=== PATIENT | female | born 1950 | race Caucasian/White ===

== ENCOUNTER 2017-03-02 10:09 | Inpatient (IN) | payer MEDICARE, OTHER ==
[~2017-03-02] VITALS: Ht 167.6 cm; Wt 111.7 kg
[~2017-03-02 10:09] MED LIST: MECL25 PO; PROM1SUP12 PR; Z.0.NO CURRENT MEDS
[2017-03-02 10:30] VITALS: BP 132/96; PULSE 68; RESP 16; TEMP 98; O2SAT 100
[2017-03-02 10:32] VITALS: BP 131/78; PULSE 67; RESP 18; TEMP 98.1; O2SAT 97
[2017-03-02] MEDS ORDERED: MULT-65 PO (11:13)
[2017-03-02] MEDS ORDERED: eye drops (11:13)
--- NOTE | 2017-03-02 12:02 | PD ---
HPI Chief Complaint: Fall Time Seen by Provider: 11:51 Travel History International Travel<30 days: No Contact w/Intl Traveler<30days: No Traveled to known affect area: No History of Present Illness HPI 66-year-old female complains of right knee pain, bilateral feet pain. Patient fell off a stepladder this morning. Patient states that she hit her head and the left shoulder and landed on the left side of her body. Patient denies loss of consciousness. Patient denies any headache or neck pain. Patient denies any chest pain or shortness of breath. Patient denies abdominal pain. Patient denies any back pain. Patient states that she has sharp pain localized the right knee and bilateral feet. Patient denies any focal weakness or numbness of extremity. Patient denies any medical problem except glaucoma. Patient states that she is on eyedrops medication daily. PFSH Past Medical History Diminished Hearing: No Medical other: Yes (eyedrops for pre glaucoma) Influenza Vaccination: Yes Menopausal: Yes Social History Alcohol Use: Yes (occassional ) Tobacco Use: No Substance Use: No Allergies-Medications (Allergen,Severity, Reaction): Coded Allergies: No Known Allergies (Verified Allergy, Mild, 06/24/07) Reported Meds & Prescriptions Reported Meds & Active Scripts Active Reported Multi-Vitamin Daily (Multiple Vitamin) 1 Tab Tab 1 Tab PO DAILY [eye drops] BID Review of Systems General / Constitutional: No: Fever Eyes: No: Visual changes HENT: No: Headaches Cardiovascular: No: Chest Pain or Discomfort Respiratory: No: Shortness of Breath Gastrointestinal: No: Abdominal Pain Genitourinary: No: Dysuria Musculoskeletal: Positive: Pain Skin: No Rash Neurologic: No: Weakness Psychiatric: No: Depression Endocrine: No: Polydipsia Hematologic/Lymphatic: No: Easy Bruising Physical Exam Narrative GENERAL: Well-nourished, well-developed patient. SKIN: Focused skin assessment warm/dry. HEAD: Normocephalic. No tenderness on palpation of the head. EYES: No scleral icterus. No injection or drainage. Pupils 2 mm equal reactive. NECK: Supple, trachea midline. No JVD or lymphadenopathy. No tenderness on palpation of the neck. CARDIOVASCULAR: Regular rate and rhythm without murmurs, gallops, or rubs. RESPIRATORY: Breath sounds equal bilaterally. No accessory muscle use. GASTROINTESTINAL: Abdomen soft, non-tender, nondistended. MUSCULOSKELETAL: Patient has diffuse tenderness over the right knee. Limited range of motion the right knee. Right Knee joint stable. Moderate effusion noted right knee. Patient has mild soft tissue swelling tenderness dorsal aspect of both feet. Tenderness diffuse over the dorsum aspect of both feet. Moderate tenderness on palpation over the fourth and fifth metatarsal of the left foot. No ankle tenderness on palpation. BACK: Nontender without obvious deformity. No CVA tenderness. Neurologic exam normal. Data Data Last Documented VS Vital Signs Date Time Temp Pulse Resp B/P (MAP) Pulse Ox O2 Delivery O2 Flow Rate FiO2 03/02/17 10:32 98.1 67 18 131/78 (95) 97 Room Air Orders Orders Ankle, Complete ([id number]) (03/02/17 10:38) Knee, Complete (4vws) (03/02/17 10:38) Foot, Complete ([id number]) (03/02/17 11:56) Foot, Complete ([id number]) (03/02/17 11:56) Ct Knee W/O Contrast (03/02/17 ) Electrocardiogram (03/02/17 13:22) Complete Blood Count With Diff (03/02/17 13:22) Basic Metabolic Panel (Bmp) (03/02/17 13:22) Prothrombin Time / Inr (Pt) (03/02/17 13:22) Act Partial Throm Time (Ptt) (03/02/17 13:22) Chest, Single Ap (03/02/17 13:22) Iv Access Insert/Monitor (03/02/17 13:22) Ecg Monitoring (03/02/17 13:22) Oximetry (03/02/17 13:22) Splint Or Brace Apply/Monitor (03/02/17 15:01) Splint Or Brace Apply/Monitor (03/02/17 15:01) Labs Laboratory Tests Test 03/02/17 13:35 White Blood Count 11.0 TH/MM3 Red Blood Count 4.47 MIL/MM3 Hemoglobin 14.4 GM/DL Hematocrit 43.4 % Mean Corpuscular Volume 97.2 FL Mean Corpuscular Hemoglobin 32.2 PG Mean Corpuscular Hemoglobin Concent 33.1 % Red Cell Distribution Width 13.8 % Platelet Count 208 TH/MM3 Mean Platelet Volume 9.3 FL Neutrophils (%) (Auto) 75.4 % Lymphocytes (%) (Auto) 14.4 % Monocytes (%) (Auto) 7.3 % Eosinophils (%) (Auto) 2.3 % Basophils (%) (Auto) 0.6 % Neutrophils # (Auto) 8.3 TH/MM3 Lymphocytes # (Auto) 1.6 TH/MM3 Monocytes # (Auto) 0.8 TH/MM3 Eosinophils # (Auto) 0.2 TH/MM3 Basophils # (Auto) 0.1 TH/MM3 CBC Comment DIFF FINAL Differential Comment Prothrombin Time 10.4 SEC Prothromb Time International Ratio 0.9 RATIO Activated Partial Thromboplast Time 21.9 SEC Blood Urea Nitrogen 18 MG/DL Creatinine 0.96 MG/DL Random Glucose 93 MG/DL Calcium Level 8.5 MG/DL Sodium Level 141 MEQ/L Potassium Level 3.7 MEQ/L Chloride Level 109 MEQ/L Carbon Dioxide Level 25.3 MEQ/L Anion Gap 7 MEQ/L Estimat Glomerular Filtration Rate 58 ML/MIN MDM Medical Decision Making Medical Screen Exam Complete: Yes Emergency Medical Condition: Yes Interpretation(s) 3:04 PM. X-ray shows right tibial fracture and left fifth metatarsal fracture. Differential Diagnosis Differential diagnosis including sprain, fracture, dislocation. Narrative Course 66-year-old female with right knee pain, bilateral feet pain. Status post fall. Knee immobilizer right knee. Posterior short splint left leg. I spoke with Dr. Luis Flowers, orthopedist web production manager. Advised medical admission with orthopedist consultation. Surgery pending in a.m. Diagnosis Primary Impression: Fracture of right tibial plateau Qualified Codes: S82.141A - Displaced bicondylar fracture of right tibia, initial encounter for closed fracture Additional Impression: Fracture of fifth metatarsal bone of left foot Qualified Codes: S92.352A - Displaced fracture of fifth metatarsal bone, left foot, initial encounter for closed fracture Admitting Information Admitting Physician Requests: Admit Donn Reynolds MD Mar 02, 2017 12:02
--- NOTE | 2017-03-02 13:21 | RADRPT ---
EXAM DATE/TIME: 03/02/2017 12:18 [facility] COMPARISON: No previous studies available for comparison. INDICATIONS : Patient states she fell today, right knee pain. MEDICAL HISTORY : None. SURGICAL HISTORY : None. ENCOUNTER: Initial ACUITY: 1 day PAIN SCORE: 6/10 LOCATION: Right Knee FINDINGS: There is evidence of an acute depressed fracture involving the lateral tibial plateau. Fracture also involves the lateral aspect of the medial tibial plateau. A large suprapatellar knee joint effusion is noted. Mild degenerative changes are noted involving the patellofemoral and femorotibial joints. CONCLUSION: 1. Acute depressed fracture involving the lateral tibial plateau as well as a fracture involving the lateral aspect of the medial tibial plateau. 2. Large suprapatellar knee joint effusion. 3. Mild degenerative changes involving the patellofemoral and femorotibial joints. Andreas Bah MD on March 02, 2017 at 12:47 Board Certified Radiologist. This report was verified electronically.
--- NOTE | 2017-03-02 13:23 | RADRPT ---
EXAM DATE/TIME: 03/02/2017 12:20 [facility] COMPARISON: No previous studies available for comparison. INDICATIONS : Patient states she fell today, right ankle pain. MEDICAL HISTORY : None. SURGICAL HISTORY : None. ENCOUNTER: Initial ACUITY: 1 day PAIN SCORE: 4/10 LOCATION: Right Ankle FINDINGS: Plantar calcaneal spur is noted. There is no acute fracture or dislocation of the right ankle. The ankle Mortis is intact. CONCLUSION: 1. No acute fracture or dislocation. 2. Small plantar calcaneal spur. Andreas Bah MD on March 02, 2017 at 12:50 Board Certified Radiologist. This report was verified electronically.
[2017-03-02 13:49] LABS: AUTOMATED NEUTROPHIL # 8.3 TH/MM3 (1.8-7.7); BASOPHIL # 0.1 TH/MM3 (0-0.2); BASOPHIL % 0.6 % (0.0-2.0); EOSINOPHIL # 0.2 TH/MM3 (0-0.4); EOSINOPHIL % 2.3 % (0.0-4.0); HEMATOCRIT 43.4 % (35.0-46.0); HEMO FLAGS DIFF FINAL; LYMPH % 14.4 % (9.0-44.0); LYMPHOCYTE # 1.6 TH/MM3 (1.0-4.8); MEAN CELL VOLUME 97.2 FL (80.0-100.0); MEAN CORPUSCULAR HEMOGLOBIN 32.2 PG (27.0-34.0); MEAN CORPUSCULAR HGB CONC 33.1 % (32.0-36.0); MONO % 7.3 % (0.0-8.0); NEUT % 75.4 % (16.0-70.0); PLATELET COUNT 208 TH/MM3 (150-450); RED BLOOD COUNT 4.47 MIL/MM3 (4.00-5.30); RED CELL DISTRIBUTION WIDTH 13.8 % (11.6-17.2)
--- NOTE | 2017-03-02 13:51 | RADRPT ---
EXAM DATE/TIME: 03/02/2017 12:21 [facility] COMPARISON: ANKLE RIGHT COMPLETE ([id number]), March 02, 2017, 12:20. INDICATIONS : Patient states she fell today, right foot pain. MEDICAL HISTORY : None. SURGICAL HISTORY : None. ENCOUNTER: Initial ACUITY: 1 day PAIN SCORE: 6/10 LOCATION: Right Foot FINDINGS: The exam demonstrates advanced degenerative changes in the metatarsal phalangeal joint of the first a nd second digits. No acute fracture of the right foot is identified. The osseous structures are other ellis intact. There is soft tissue swelling along the dorsal aspect of the foot. CONCLUSION: 1. Degenerative changes. No acute fracture. Sinan Castillo MD on March 02, 2017 at 13:48 Board Certified Radiologist. This report was verified electronically.
--- NOTE | 2017-03-02 13:52 | RADRPT ---
EXAM DATE/TIME: 03/02/2017 12:26 [facility] COMPARISON: FOOT RIGHT COMPLETE ([id number]), March 02, 2017, 12:21. INDICATIONS : Patient states she fell today, left foot pain. MEDICAL HISTORY : None. SURGICAL HISTORY : None. ENCOUNTER: Initial ACUITY: 1 day PAIN SCORE: 6/10 LOCATION: Left Foot FINDINGS: The examination demonstrates a mildly displaced, oblique fracture through the fifth metatarsal. The r emainder the osseous structures are intact. There is soft tissue swelling. CONCLUSION: 1. Fracture of the fifth metatarsal. Sinan Castillo MD on March 02, 2017 at 13:49 Board Certified Radiologist. This report was verified electronically.
[2017-03-02 14:00] VITALS: BP 123/70; PULSE 72; RESP 16; O2SAT 96
[2017-03-02 14:00] LABS: APTT (PATIENT) 21.9 SEC (24.3-30.1); INTERNATIONAL NORMALIZED RATIO 0.9 RATIO; PROTHROMBIN TIME - PATIENT 10.4 SEC (9.8-11.6)
[2017-03-02 14:12] LABS: BICARBONATE 25.3 MEQ/L (21.0-32.0); POTASSIUM 3.7 MEQ/L (3.5-5.1)
--- NOTE | 2017-03-02 14:15 | RADRPT ---
EXAM DATE/TIME: 03/02/2017 13:49 [facility] COMPARISON: No previous studies available for comparison. INDICATIONS : Trauma; fall off ladder. RADIATION DOSE: 47.10 CTDIvol (mGy) MEDICAL HISTORY : None SURGICAL HISTORY : None. ENCOUNTER: Initial ACUITY: 1 day PAIN SCALE: 6/10 LOCATION: Right knee TECHNIQUE: Volumetric scanning of the knee was performed. Using automated exposure control and adjustment of th e mA and/or kV according to patient size, radiation dose was kept as low as reasonably achievable to obtain optimal diagnostic quality images. DICOM format image data is available electronically for re view and comparison. FINDINGS: There is an impacted fracture of the lateral tibial plateau that begins medial to the tibial spine. There is depression of the entire lateral plateau by approximately 8 mm. Fibular head is intact The femoral condyles intact. Joint effusion is evident within fluid fluid level. CONCLUSION: Lateral plateau fracture as described above that doesn't involve the tibial spines. Fibula is intact. Tesfaye Castillo MD FACR on March 02, 2017 at 14:10 Board Certified Radiologist. This report was verified electronically.
--- NOTE | 2017-03-02 14:36 | RADRPT ---
EXAM DATE/TIME: 03/02/2017 13:31 [facility] COMPARISON: No previous studies available for comparison. INDICATIONS : Evaluate for communicable disease, pneumonia, preop surgery. MEDICAL HISTORY : None. SURGICAL HISTORY : None. ENCOUNTER: Subsequent ACUITY: 1 day PAIN SCORE: 0/10 LOCATION: Bilateral chest FINDINGS: The heart is mildly prominent. The pulmonary vascular pattern is normal. The lungs are clear. CONCLUSION: 1. Mild cardiomegaly. 2. No acute focal pulmonary infiltrate or pulmonary vascular congestion. Andreas Bah MD on March 02, 2017 at 14:08 Board Certified Radiologist. This report was verified electronically.
[2017-03-02] MEDS ORDERED: SODIUM CHLOR 0.9% 1000 ML INJ 1,000 ML IV SCH (15:15)
[2017-03-02] MEDS ORDERED: ONDANSETRON HCL 4 MG/2 ML VIAL IVP PRN (15:45)
[2017-03-02] MEDS ORDERED: ACETAMINOPHEN/HYDROcodone 325 MG/10 MG TAB PO PRN (15:45)
[2017-03-02] MEDS ORDERED: NALOXONE HCL 0.4 MG/ML AMP IV PUSH PRN (15:45)
[2017-03-02] MEDS ORDERED: ACETAMINOPHEN/HYDROcodone 325 MG/5 MG TAB PO PRN (15:45)
[2017-03-02] MEDS ORDERED: SODIUM CHLORIDE 0.9% FLUSH 10 ML FLUSH IV FLUSH PRN (15:45)
--- NOTE | 2017-03-02 16:20 | HHI.HP ---
[facility] No Primary Care Physician Admission Diagnosis fracture right tibial plateau. Fracture left foot fifth metatarsal. Diagnoses: Chief Complaint: Fall Travel History International Travel<30 Days: No Contact w/Intl Traveler <30 Da: No Traveled to Known Affected Are: No History of Present Illness Written by Amro Pacheco, acting as scribe for Dr. Bledsoe on 03/02/17 at 16:15. 66-year-old female with past medical history of glaucoma who presented after a fall. The patient was pain on the and standing on a two-step call stepstool. She lost her balance and fell onto the left side of her body. She states she hit her head, left shoulder, but those are okay. She did fracture her left foot and right knee. She denies any other injury. She has no other complaints at this time. Orthopedics were consulted from the ED and plan on operative intervention in the morning. Review of Systems Except as stated in HPI: all other systems reviewed are Neg Past Family Social History Past Medical History Glaucoma Past Surgical History Breast biopsies Reported Medications Eyedrops Allergies: Coded Allergies: No Known Allergies (Verified , 06/24/07) Active Ordered Medications Current Medications Medications (Trade) Dose Ordered Sig/Jame Route Start Time Stop Time Status Last Admin Sodium Chloride 1,000 ml @ 100 mls/hr Q10H IV 03/02/17 15:15 03/02/17 15:25 Sodium Chloride 1,000 ml @ 83 mls/hr Q12H3M IV 03/02/17 15:31 UNV (NS Flush) 2 ml UNSCH PRN IV FLUSH 03/02/17 15:45 UNV (NS Flush) 2 ml BID IV FLUSH 03/02/17 21:00 UNV (Zofran Inj) 4 mg Q6H PRN IVP 03/02/17 15:45 UNV (Lovenox Inj) 40 mg Q24H SQ 03/02/17 15:45 UNV ([place] 5-325 Mg) 1 tab Q4H PRN PO 03/02/17 15:45 UNV ([place] 10-325 Mg) 1 tab Q4H PRN PO 03/02/17 15:45 UNV (Narcan Inj) 0.4 mg UNSCH PRN IV PUSH 03/02/17 15:45 UNV (Emili-Colace) 1 tab BID PO 03/02/17 21:00 UNV Family History Mother and sister had problems with easy bruising/bleeding; no formal diagnosis Another sister had problems with infections Social History Denies any tobacco or drug use Rare alcohol use Physical Exam Vital Signs Vital Signs Date Time Temp Pulse Resp B/P (MAP) Pulse Ox O2 Delivery O2 Flow Rate FiO2 03/02/17 10:32 98.1 67 18 131/78 (95) 97 Room Air 03/02/17 10:30 98.0 68 16 132/96 (108) 100 Physical Exam GENERAL: Well-developed well-nourished. In no acute distress. SKIN: Warm and dry. No lesions noted. HEENT: Normocephalic. Pupils equal and round. Mucous membranes pink and moist. CARDIOVASCULAR: Regular rate and rhythm. No murmur appreciated. RESPIRATORY: No accessory muscle use. Clear to auscultation. Breath sounds equal bilaterally. GASTROINTESTINAL: Abdomen soft, non-tender, nondistended. Bowel sounds x4. MUSCULOSKELETAL: Right he can ice brace. Left ankle splinted. No clubbing or cyanosis. No edema. NEUROLOGICAL: Awake and alert. No focal neurological deficits. Moves upper and lower extremities spontaneously. Normal speech. Sensation grossly intact lower extremities. PSYCHIATRIC: Appropriate mood and affect; insight and judgment normal. Laboratory Laboratory Tests Test 03/02/17 13:35 White Blood Count 11.0 Red Blood Count 4.47 Hemoglobin 14.4 Hematocrit 43.4 Mean Corpuscular Volume 97.2 Mean Corpuscular Hemoglobin 32.2 Mean Corpuscular Hemoglobin Concent 33.1 Red Cell Distribution Width 13.8 Platelet Count 208 Mean Platelet Volume 9.3 Neutrophils (%) (Auto) 75.4 Lymphocytes (%) (Auto) 14.4 Monocytes (%) (Auto) 7.3 Eosinophils (%) (Auto) 2.3 Basophils (%) (Auto) 0.6 Neutrophils # (Auto) 8.3 Lymphocytes # (Auto) 1.6 Monocytes # (Auto) 0.8 Eosinophils # (Auto) 0.2 Basophils # (Auto) 0.1 CBC Comment DIFF FINAL Differential Comment Prothrombin Time 10.4 Prothromb Time International Ratio 0.9 Activated Partial Thromboplast Time 21.9 Blood Urea Nitrogen 18 Creatinine 0.96 Random Glucose 93 Calcium Level 8.5 Sodium Level 141 Potassium Level 3.7 Chloride Level 109 Carbon Dioxide Level 25.3 Anion Gap 7 Estimat Glomerular Filtration Rate 58 Result Diagram: 03/02/175 03/02/17 1335 Caprini VTE Risk Assessment Caprini VTE Risk Assessment: Mod/High Risk (score >= 2) VTE [facility] Contraindication: BLE trauma Caprini Risk Assessment Model Point Value = 1 Point Value = 2 Point Value = 3 Point Value = 5 Age 41-60 Minor surgery BMI > 25 kg/m2 Swollen legs Varicose veins or History of unexplained or recurrent spontaneous Oral contraceptives or hormone replacement Sepsis (< 1 month) Serious lung disease, including pneumonia (< 1 month) Abnormal pulmonary function Acute myocardial infarction Congestive heart failure (< 1 month) History of inflammatory bowel disease Medical patient at bed rest Age 61-74 Arthroscopic surgery Major open surgery (> 45 min) Laparoscopic surgery (> 45 min) Malignancy Confined to bed (> 72 hours) Immobilizing plaster cast Central venous access Age >= 75 History of VTE Family history of VTE Factor V Leiden Prothrombin [id number] Lupus anticoagulant Anticardiolipin antibodies Elevated serum homocysteine Heparin-induced thrombocytopenia Other congenital or acquired thrombophilia Stroke (< 1 month) Elective arthroplasty Hip, pelvis, or leg fracture Acute spinal cord injury (< 1 month) Prophylaxis Regimen Total Risk Factor Score Risk Level Prophylaxis Regimen 0-1 Low Early ambulation 2 Moderate Order ONE of the following: *Sequential Compression Device (SCD) *Heparin 5000 units SQ BID 3-4 Higher Order ONE of the following medications: *Heparin 5000 units SQ TID *Enoxaparin/Lovenox 40 mg SQ daily (WT < 150 kg, CrCl > 30 mL/min) *Enoxaparin/Lovenox 30 mg SQ daily (WT < 150 kg, CrCl > 10-29 mL/min) *Enoxaparin/Lovenox 30 mg SQ BID (WT < 150 kg, CrCl > 30 mL/min) AND/OR *Sequential Compression Device (SCD) 5 or more Highest Order ONE of the following medications: *Heparin 5000 units SQ TID (Preferred with Epidurals) *Enoxaparin/Lovenox 40 mg SQ daily (WT < 150 kg, CrCl > 30 mL/min) *Enoxaparin/Lovenox 30 mg SQ daily (WT < 150 kg, CrCl > 10-29 mL/min) *Enoxaparin/Lovenox 30 mg SQ BID (WT < 150 kg, CrCl > 30 mL/min) AND *Sequential Compression Device (SCD) Assessment and Plan Assessment and Plan 66-year-old female with past medical history of glaucoma who presented after a fall Mechanical fall/Right tibial plateau fracture/Left fifth metatarsal fracture Reviewed: X-rays, CT done in the ED, showed fractures as above, no other acute findings. -Orthopedics was consulted from the ED and recommending operative intervention in the morning. -Nothing by mouth after midnight. -Pain control with [place] as needed. -Activity and rehabilitation recommendations per orthopedics. Glaucoma: Chronic. Can resume home eyedrops. DVT prophylaxis: Heparin. This note was transcribed by john [Amor Pacheco]. I, Dr. Sinan Bledsoe personally performed the history, physical exam, and medical decision making; and confirmed the accuracy of the information in the transcribed note. Authenticated by Dr. Sinan Bledsoe on 03/02/17 at 17:44. Discussed Condition With Patient with at bedside, ED staff Amor Pacheco Mar 02, 2017 16:20 Sinan Bledsoe MD Mar 02, 2017 17:44
[2017-03-02] MEDS: SODIUM CHLOR 0.9% 1000 ML INJ 1,000 ML IV SCH (16:40)
[2017-03-02] MEDS ORDERED: ENOXAPARIN SODIUM 40 MG/0.4 ML SYRINGE SQ SCH (17:00)
--- NOTE | 2017-03-02 20:48 | EKG ---
Date Performed: 03/02/2017 Time Performed: 19:44:22 PTAGE: 66 years EKG: Sinus rhythm WITH FREQUENT VENTRICULAR PREMATURE COMPLEXES INCOMPLETE RIGHT BUNDLE BRANCH BLOCK ABNORMAL RHYTHM E CG Compared to prior electrocardiogram, PVCs are noww presentt and nonspecific T-wave changes are no longer present. PREVIOUS TRACING : 03/02/2017 13.45 DOCTOR: Jesus Hawk Interpretating Date/Time 03/02/2017 20:48:04
--- NOTE | 2017-03-02 20:57 | EKG ---
Date Performed: 03/02/2017 Time Performed: 13:45:56 PTAGE: 66 years EKG: Sinus rhythm BORDERLINE LEFT AXIS DEVIATION INCOMPLETE RIGHT BUNDLE BRANCH BLOCK Nonspecific T wave changes ABNOR MAL ECG NO PREVIOUS TRACING DOCTOR: Jesus Hawk Interpretating Date/Time 03/02/2017 20:56:20
[2017-03-02 21:20] VITALS: BP 162/77; PULSE 86; RESP 17; TEMP 98.8; O2SAT 96
[2017-03-02] MEDS: HEPARIN SODIUM - SQ 10,000 UNITS/ML VIAL SQ SCH (23:12)
[2017-03-02] MEDS: DOCUSATE SODIUM 50 MG/SENNA 8.6 MG TAB PO SCH (23:13)
[2017-03-02] MEDS: SODIUM CHLORIDE 0.9% FLUSH 10 ML FLUSH IV FLUSH SCH (23:14)
[2017-03-03] VITALS (7 sets, daily range): BP systolic 140–155; BP diastolic 78–88; PULSE 78–98; RESP 16–18; TEMP 97.9–99.9; O2SAT 95–99
[2017-03-03] MEDS: SODIUM CHLOR 0.9% 1000 ML INJ 1,000 ML IV SCH (03:41)
[2017-03-03] MEDS ORDERED: INSULIN HUMAN REGULAR 1,000 UNITS/10 ML VIAL SQ PRN (06:30)
[2017-03-03] MEDS ORDERED: LACTATED RINGER'S 1000 ML IV PRN (06:30)
[2017-03-03] MEDS ORDERED: SODIUM CHLORID 0.9% 500 ML IV PRN (06:30)
[2017-03-03] MEDS ORDERED: CHLORHEXIDINE GLUCONATE 2 % 1 PACK (2 CLOTHS) TOPICAL PRN (06:30)
[2017-03-03] MEDS ORDERED: POVIDONE IODINE 5% (ANTISEPSIS KIT) 4 APPLICATIONS EACH NARE PRN (06:30)
[2017-03-03 08:55] LABS: AUTOMATED NEUTROPHIL # 5.6 TH/MM3 (1.8-7.7); BASOPHIL % 0.5 % (0.0-2.0); EOSINOPHIL # 0.1 TH/MM3 (0-0.4); EOSINOPHIL % 1.6 % (0.0-4.0); HEMATOCRIT 39.2 % (35.0-46.0); HEMO FLAGS DIFF FINAL; LYMPH % 20.4 % (9.0-44.0); LYMPHOCYTE # 1.7 TH/MM3 (1.0-4.8); MEAN CELL VOLUME 96.4 FL (80.0-100.0); MEAN CORPUSCULAR HEMOGLOBIN 32.9 PG (27.0-34.0); MEAN CORPUSCULAR HGB CONC 34.1 % (32.0-36.0); MONO % 10.8 % (0.0-8.0); NEUT % 66.7 % (16.0-70.0); PLATELET COUNT 177 TH/MM3 (150-450); RED BLOOD COUNT 4.07 MIL/MM3 (4.00-5.30); RED CELL DISTRIBUTION WIDTH 13.8 % (11.6-17.2); WHITE BLOOD COUNT 8.5 TH/MM3 (4.0-11.0)
[2017-03-03] MEDS: DOCUSATE SODIUM 50 MG/SENNA 8.6 MG TAB PO SCH ×2 (09:00→22:25)
[2017-03-03] MEDS: SODIUM CHLORIDE 0.9% FLUSH 10 ML FLUSH IV FLUSH SCH (09:00)
[2017-03-03] MEDS: HEPARIN SODIUM - SQ 10,000 UNITS/ML VIAL SQ SCH (09:00)
--- NOTE | 2017-03-03 09:06 | EKG ---
Date Performed: 03/03/2017 Time Performed: 05:56:22 PTAGE: 66 years EKG: Sinus rhythm Leftward axis Nonspecific T wave changes Abnormal ECG Compared to prior electrocardiogram, Nonspecif ic T wave changes are now present and PVCs no longer present. . PREVIOUS TRACING : 03/02/2017 19.44 DOCTOR: Jesus Hawk Interpretating Date/Time 03/03/2017 09:05:30
[2017-03-03 09:20] LABS: ALT (GPT) 41 U/L (10-53); ANION GAP 9 MEQ/L (5-15); AST (GOT) 30 U/L (15-37); BICARBONATE 25.2 MEQ/L (21.0-32.0); BLOOD UREA NITROGEN 10 MG/DL (7-18); CHLORIDE 108 MEQ/L (98-107); GLOMERULAR FILTRATION RATE 59 ML/MIN (>89); POTASSIUM 3.7 MEQ/L (3.5-5.1); SODIUM (NA) 142 MEQ/L (136-145)
[2017-03-03 09:23] LABS: ALKALINE PHOSPHATASE 97 U/L (45-117); TOTAL BILIRUBIN ADULT 2.3 MG/DL (0.2-1.0)
--- NOTE | 2017-03-03 10:12 | HHI.PR ---
Subjective Remarks Plan for surgical repair of tibial plateau fracture today. Patient has no complaints preop. Pain is controlled. Objective Vital Signs Date Time Temp Pulse Resp B/P (MAP) Pulse Ox O2 Delivery O2 Flow Rate FiO2 03/03/17 08:00 98.5 78 18 143/82 (102) 98 03/03/17 04:00 99.6 78 16 150/78 (102) 95 03/03/17 02:15 Room Air 03/03/17 00:14 18 03/03/17 00:00 99.0 84 18 155/88 (110) 97 03/02/17 21:20 98.8 86 17 162/77 (105) 96 03/02/17 14:00 72 16 123/70 (87) 96 Room Air 03/02/17 10:32 98.1 67 18 131/78 (95) 97 Room Air 03/02/17 10:30 98.0 68 16 132/96 (108) 100 I/O 03/02/17 03/02/17 03/02/17 03/03/17 03/03/17 03/03/17 07:00 15:00 23:00 07:00 15:00 23:00 Intake Total 640 ml 1800 ml Output Total 900 ml 750 ml Balance -260 ml 1050 ml Intake Oral 440 ml 0 ml IV Total 200 ml 1800 ml Output Urine Total 900 ml 750 ml # Bowel Movements 0 0 Result Diagram: 03/03/1742 03/03/17 0842 Objective Remarks GENERAL: NAD, A&Ox3 HEAD: Normocephalic. NECK: Supple, trachea midline. No lymphadenopathy. EYES: No scleral icterus. No injection or drainage. CARDIOVASCULAR: Regular rate and rhythm without murmurs, gallops, or rubs. RESPIRATORY: Breath sounds equal bilaterally. No accessory muscle use. GASTROINTESTINAL: Abdomen soft, non-tender, nondistended. MUSCULOSKELETAL: No cyanosis, or edema. Left knee is bandaged. SKIN: Warm and dry. NEURO: No focal neurological deficitis. A/P Problem List: (1) Fracture of right tibial plateau ICD Code: S82.141A - Displaced bicondylar fracture of right tibia, initial encounter for closed fracture Status: Acute (2) Fracture of fifth metatarsal bone of left foot ICD Code: S92.352A - Displaced fracture of fifth metatarsal bone, left foot, initial encounter for closed fracture Status: Acute Assessment and Plan Assessment and Plan 66-year-old female with past medical history of glaucoma who presented with a right tibial plateau fracture and left fifth metatarsal fracture after a fall. Mechanical fall Right tibial plateau fracture Left fifth metatarsal fracture Continue as needed pain treatments Bed rest preop Orthopedics following Surgical repair planned for today Physical therapy postop Glaucoma Continue baseline eyedrops Follow clinically DVT prophylaxis Heparin. Problem Qualifiers (1) Fracture of right tibial plateau: Qualified Codes: S82.141A - Displaced bicondylar fracture of right tibia, initial encounter for closed fracture (2) Fracture of fifth metatarsal bone of left foot: Qualified Codes: S92.352A - Displaced fracture of fifth metatarsal bone, left foot, initial encounter for closed fracture Sinan Bledsoe MD Mar 03, 2017 10:12
[2017-03-03] MEDS ORDERED: VANCOMYCIN HCL 1000 MG VIAL ONE (10:18)
[2017-03-03] MEDS ORDERED: ceFAZolin INJ 1,000 MG VIAL ONE (10:18)
[2017-03-03] MEDS ORDERED: GENTAMICIN SULFATE 80 MG/2 ML VIAL ONE (10:18)
[2017-03-03] MEDS ORDERED: HYDR-3288 PO (10:36)
[2017-03-03] MEDS ORDERED: ENOX40P SQ (10:36)
[2017-03-03] MEDS ORDERED: ASPI81CH37 CHEW (10:37)
[2017-03-03] MEDS ORDERED: MISCELLANEOUS PHARMACY INFORMATION XX ONE (10:45)
[2017-03-03] MEDS ORDERED: MISCELLANEOUS NURSING INFORMATION XX PRN (10:45)
[2017-03-03] MEDS ORDERED: MORPHINE SULFATE 4 MG/ML INJ IV PUSH PRN (10:45)
[2017-03-03] MEDS ORDERED: ONDANSETRON HCL 4 MG/2 ML VIAL IVP PRN (10:45)
[2017-03-03] MEDS ORDERED: Post-op Orders (for Pharmacy) MISC XX ONE (10:45)
[2017-03-03] MEDS ORDERED: SODIUM CHLORIDE 0.9% FLUSH 5 ML FLUSH IVF PRN (10:45)
[2017-03-03] MEDS ORDERED: MAGNESIUM HYDROXIDE SUSP 30 ML CUP PO PRN (10:45)
[2017-03-03] MEDS ORDERED: diphenhydrAMINE HCL 25 MG CAP PO PRN (10:45)
[2017-03-03] MEDS: DEXT 5%-NACL 0.45% 1000 ML INJ 1,000 ML IV SCH ×2 (11:00→22:27)
[2017-03-03] MEDS ORDERED: ePHEDrine/NS 25 MG/5 ML SYR IV ONE (12:11)
[2017-03-03] MEDS ORDERED: PHENYLEPH/NS 1000 MCG/10 ML SYR IV ONE (12:11)
[2017-03-03] MEDS ORDERED: ONDANSETRON HCL 4 MG/2 ML VIAL IV PUSH ONE (12:11)
[2017-03-03] MEDS ORDERED: MIDAZOLAM HCL 2 MG/2 ML VIAL IV ONE (12:11)
[2017-03-03] MEDS ORDERED: PROPOFOL 200 MG/20 ML AMP IV ONE (12:11)
[2017-03-03] MEDS ORDERED: DO NOT ADM ANY ANTICOAGULANT DRUGS PRN (13:05)
--- NOTE | 2017-03-03 14:00 | MB ---
cc: RON MONTILLA M.D. DATE OF CONSULTATION: 03/03/2017 REASON FOR CONSULTATION Right tibial plateau fracture left foot fifth metatarsal fracture. HISTORY Patient is a 66-year-old female past history of glaucoma presented to [facility] emergency room after a trip and fall injury, she was standing on a step stool and lost her balance and fell, she had pain in left foot and right knee. She is unable stand or bear weight. She was taken to [facility] emergency room, x-rays confirmed evidence of a comminuted displaced right tibial plateau fractures of the left fifth metatarsal shaft fracture. Pain is constant severe worsening symptoms, any movement or attempted weightbearing and numbness, pain, no referred symptoms. She has been admitted and had x-rays and orthopedics are consultated. PAST HISTORY Positive for glaucoma breast biopsy. MEDICATIONS Include eye drops. ALLERGIES No known drug allergies REVIEW OF SYSTEMS System negative 12 systems other than HPI. FAMILY HISTORY Noncontributory. SOCIAL HISTORY She has tobacco or drug use. She occasionally drinks alcohol. PHYSICAL EXAMINATION: VITAL SIGNS: Temperature 98, pulse is 68, respirations 16, blood draws 130/90. IN GENERAL: The patient is awake, alert, in no distress. HEAD, EYES, EARS, NOSE, AND THROAT: Normocephalic, atraumatic, Pupils equal, round and reactive to light, extraocular movements intact. NECK: The neck is supple. HEART: Regular rate and rhythm. ABDOMEN: Soft, nontender. EXTREMITIES: Skin is warm, dry, intact. Her right knee has swelling and tender. The patient's pain in the past motion of the right knee. She flexes her ankle and toes distally right-sided, the left foot tissue swelling. The region of the fifth metatarsal tenderness in this region. With restriction of motion as related to her fracture. LABORATORY FINDINGS: White blood cell count 11, hemoglobin 14, hematocrit 43, platelet 208, glucose 93, creatinine 0.96. X-RAYS Right knee reveal a comminuted displaced distal tibial plateau fracture. X-RAYS Left foot shows fifth metatarsal fracture. IMPRESSION A 66-year female status post fall right displaced tibial plateau fracture, left hip metatarsal fracture. PLAN Explained the diagnosis to the patient. Recommended nonoperative treamtent for left fifth metatarsal fracture versus right tibial toe fracture. We discussed treatment options. We discussed option of nonoperative treatment versus surgery. The surgery would consist of open reduction internal fixation and possible external fixation. The risk of surgery were discussed which include but are not limited to anesthesia, bleeding, infection, damage to nerves or blood vessels, pain, stiffness, failure of hardware, arthritis, blood clots, pulmonary embolism, or even . The patient's pain is severe in regards to right knee. She does wish to proceed with surgery as related to the right knee injury, and written consent has been obtained, and surgical site has been marked. MD CARLEY Montes/carla /10:30 AM /2:13 PM
--- NOTE | 2017-03-03 16:00 | RADRPT ---
EXAM DATE/TIME: 03/03/2017 12:31 [place] COMPARISON: KNEE RIGHT COMPLETE (4VWS), March 02, 2017, 12:18. INDICATIONS : Open reduction internal fixation right tibial plateau fracture MEDICAL HISTORY : None. SURGICAL HISTORY : None. ENCOUNTER: Initial ACUITY: 1 day PAIN SCORE: Non-responsive. LOCATION: Right proximal tibia FINDINGS: Interim fixation of the lateral tibial plateau fracture with a lateral plate and multiple screws. Ali gnment appears near-anatomic. No new or other fracture demonstrated. CONCLUSION: No acute complication after screw and plate fixation of the lateral tibial plateau fracture. Near-vickey tomic alignment. Joseph Hall MD on March 03, 2017 at 15:58 Board Certified Radiologist. This report was verified electronically.
[2017-03-03] MEDS: SODIUM CHLORIDE 0.9% FLUSH 5 ML FLUSH IVF SCH (21:00)
[2017-03-03] MEDS: ACETAMINOPHEN/HYDROcodone 325 MG/7.5 MG TAB PO PRN (22:26)
[2017-03-04] VITALS (7 sets, daily range): BP systolic 114–144; BP diastolic 67–87; PULSE 84–95; RESP 16–17; TEMP 99–100.3; O2SAT 91–97
[2017-03-04] MEDS: DEXT 5%-NACL 0.45% 1000 ML INJ 1,000 ML IV SCH ×2 (05:58→17:00)
--- NOTE | 2017-03-04 07:52 | PD.ORT.PN ---
Subjective Post Op Day #: 1 Subjective Remarks pain under control Objective Vitals Vital Signs Date Time Temp Pulse Resp B/P (MAP) Pulse Ox O2 Delivery O2 Flow Rate FiO2 03/04/17 04:15 Room Air 03/04/17 02:44 99.7 84 16 114/69 (84) 93 03/04/17 00:20 99.0 88 16 118/67 (84) 94 03/03/17 23:06 17 03/03/17 20:20 99.9 98 17 140/82 (101) 96 03/03/17 17:53 99 21 03/03/17 16:00 97.9 86 18 149/78 (101) 95 03/03/17 14:20 98.0 82 18 148/84 (105) 99 03/03/17 14:05 80 16 178/89 (118) 100 Nasal Cannula 2 03/03/17 13:45 81 16 157/84 (108) 100 Nasal Cannula 2 03/03/17 13:30 80 16 169/86 (113) 100 Nasal Cannula 2 03/03/17 13:15 80 16 165/91 (115) 100 Nasal Cannula 2 03/03/17 13:05 98.3 83 16 162/80 (107) 99 Nasal Cannula 2 03/03/17 08:00 98.5 78 18 143/82 (102) 98 I/O 03/03/17 03/03/17 03/03/17 03/04/17 03/04/17 03/04/17 07:00 15:00 23:00 07:00 15:00 23:00 Intake Total 1800 ml 1102 ml 338 ml 240 ml Output Total 750 ml 1000 ml 700 ml 800 ml Balance 1050 ml 102 ml -362 ml -560 ml Intake Oral 0 ml 240 ml 240 ml IV Total 1800 ml 1102 ml 98 ml Output Urine Total 750 ml 850 ml 700 ml 800 ml Estimated Blood Loss 150 ml # Bowel Movements 0 0 0 Result Diagram: 03/03/1742 03/03/1742 Objective Remarks in bed, nad dressing c/d/i neg homans nvi Assessment & Plan Ortho Post Op Day #: 1 Problem List: Assessment and Plan s/p ORIF R tib plateau fx POD#1 NWB No ROM of knee daily dressing changes lovenox d/c planning home vs. snf f/up dr. carrera 2 weeks Luis Morales Mar 04, 2017 07:51
[2017-03-04] MEDS: SODIUM CHLORIDE 0.9% FLUSH 5 ML FLUSH IVF SCH ×2 (09:00→21:52)
[2017-03-04 09:03] LABS: AUTOMATED NEUTROPHIL # 6.2 TH/MM3 (1.8-7.7); BASOPHIL % 0.5 % (0.0-2.0); EOSINOPHIL # 0.2 TH/MM3 (0-0.4); EOSINOPHIL % 2.4 % (0.0-4.0); HEMATOCRIT 36.1 % (35.0-46.0); HEMO FLAGS DIFF FINAL; LYMPH % 15.7 % (9.0-44.0); LYMPHOCYTE # 1.4 TH/MM3 (1.0-4.8); MEAN CELL VOLUME 97.7 FL (80.0-100.0); MEAN CORPUSCULAR HEMOGLOBIN 32.4 PG (27.0-34.0); MEAN CORPUSCULAR HGB CONC 33.1 % (32.0-36.0); MONO % 13.8 % (0.0-8.0); NEUT % 67.6 % (16.0-70.0); PLATELET COUNT 178 TH/MM3 (150-450); RED CELL DISTRIBUTION WIDTH 14.2 % (11.6-17.2); WHITE BLOOD COUNT 9.1 TH/MM3 (4.0-11.0)
[2017-03-04 09:23] LABS: ANION GAP 6 MEQ/L (5-15); AST (GOT) 29 U/L (15-37); BICARBONATE 27.3 MEQ/L (21.0-32.0); BLOOD UREA NITROGEN 10 MG/DL (7-18); CHLORIDE 106 MEQ/L (98-107); GLOMERULAR FILTRATION RATE 66 ML/MIN (>89); POTASSIUM 3.8 MEQ/L (3.5-5.1); SODIUM (NA) 139 MEQ/L (136-145)
[2017-03-04 09:24] LABS: ALT (GPT) 30 U/L (10-53)
[2017-03-04 09:26] LABS: ALKALINE PHOSPHATASE 85 U/L (45-117); TOTAL BILIRUBIN ADULT 1.9 MG/DL (0.2-1.0)
[2017-03-04] MEDS: MULTIVITAMINS/MINERALS THERAPEUTIC TAB PO SCH (09:32)
[2017-03-04] MEDS: DOCUSATE SODIUM 50 MG/SENNA 8.6 MG TAB PO SCH ×2 (09:32→21:52)
--- NOTE | 2017-03-04 11:26 | HHI.PR ---
Subjective Remarks Doing well postop. No nausea or vomiting. Pain is controlled. Hemoglobin level stable. Objective Vital Signs Date Time Temp Pulse Resp B/P (MAP) Pulse Ox O2 Delivery O2 Flow Rate FiO2 03/04/17 09:32 97 21 03/04/17 08:00 99.5 85 16 144/87 (106) 91 03/04/17 08:00 91 Room Air 03/04/17 04:15 Room Air 03/04/17 02:44 99.7 84 16 114/69 (84) 93 03/04/17 00:20 99.0 88 16 118/67 (84) 94 03/03/17 23:06 17 03/03/17 20:20 99.9 98 17 140/82 (101) 96 03/03/17 17:53 99 21 03/03/17 16:00 97.9 86 18 149/78 (101) 95 03/03/17 14:20 98.0 82 18 148/84 (105) 99 03/03/17 14:05 80 16 178/89 (118) 100 Nasal Cannula 2 03/03/17 13:45 81 16 157/84 (108) 100 Nasal Cannula 2 03/03/17 13:30 80 16 169/86 (113) 100 Nasal Cannula 2 03/03/17 13:15 80 16 165/91 (115) 100 Nasal Cannula 2 03/03/17 13:05 98.3 83 16 162/80 (107) 99 Nasal Cannula 2 I/O 03/03/17 03/03/17 03/03/17 03/04/17 03/04/17 03/04/17 07:00 15:00 23:00 07:00 15:00 23:00 Intake Total 1800 ml 1102 ml 338 ml 340 ml Output Total 750 ml 1000 ml 700 ml 800 ml Balance 1050 ml 102 ml -362 ml -460 ml Intake Oral 0 ml 240 ml 240 ml IV Total 1800 ml 1102 ml 98 ml 100 ml Output Urine Total 750 ml 850 ml 700 ml 800 ml Estimated Blood Loss 150 ml # Bowel Movements 0 0 0 Result Diagram: 03/04/17 0810 03/04/17 0800 Objective Remarks GENERAL: NAD, A&Ox3 HEAD: Normocephalic. NECK: Supple, trachea midline. No lymphadenopathy. EYES: No scleral icterus. No injection or drainage. CARDIOVASCULAR: Regular rate and rhythm without murmurs, gallops, or rubs. RESPIRATORY: Breath sounds equal bilaterally. No accessory muscle use. GASTROINTESTINAL: Abdomen soft, non-tender, nondistended. MUSCULOSKELETAL: No cyanosis, or edema. Left knee is bandaged. SKIN: Warm and dry. NEURO: No focal neurological deficitis. A/P Problem List: (1) Fracture of right tibial plateau ICD Code: S82.141A - Displaced bicondylar fracture of right tibia, initial encounter for closed fracture Status: Acute (2) Fracture of fifth metatarsal bone of left foot ICD Code: S92.352A - Displaced fracture of fifth metatarsal bone, left foot, initial encounter for closed fracture Status: Acute Assessment and Plan Assessment and Plan 66-year-old female with past medical history of glaucoma who presented with a right tibial plateau fracture and left fifth metatarsal fracture after a fall. Doing well postop. Follow CBC. Labs reviewed. Labs ordered for tomorrow. Continue physical therapy. Mechanical fall Right tibial plateau fracture Left fifth metatarsal fracture Continue as needed pain treatments Bed rest preop Orthopedics following Surgical repair planned for today Physical therapy postop Hereditary hyperbilirubinemia Repeat bilirubin level tomorrow to evaluate for any trend Glaucoma Continue baseline eyedrops Follow clinically DVT prophylaxis Heparin. Problem Qualifiers (1) Fracture of right tibial plateau: Qualified Codes: S82.141A - Displaced bicondylar fracture of right tibia, initial encounter for closed fracture (2) Fracture of fifth metatarsal bone of left foot: Qualified Codes: S92.352A - Displaced fracture of fifth metatarsal bone, left foot, initial encounter for closed fracture Sinan Bledsoe MD Mar 04, 2017 11:26
[2017-03-04] MEDS: ACETAMINOPHEN/HYDROcodone 325 MG/7.5 MG TAB PO PRN (11:48)
[2017-03-04] MEDS: ENOXAPARIN SODIUM 40 MG/0.4 ML SYRINGE SQ SCH (11:48)
[2017-03-05 00:50] VITALS: BP 141/78; PULSE 98; RESP 17; TEMP 100.5; O2SAT 92
[2017-03-05] MEDS: DEXT 5%-NACL 0.45% 1000 ML INJ 1,000 ML IV SCH (03:00)
[2017-03-05 07:14] LABS: AUTOMATED NEUTROPHIL # 5.9 TH/MM3 (1.8-7.7); BASOPHIL # 0.1 TH/MM3 (0-0.2); BASOPHIL % 0.6 % (0.0-2.0); EOSINOPHIL # 0.2 TH/MM3 (0-0.4); EOSINOPHIL % 2.3 % (0.0-4.0); HEMO FLAGS DIFF FINAL; LYMPHOCYTE # 1.7 TH/MM3 (1.0-4.8); MEAN CELL VOLUME 97.2 FL (80.0-100.0); MEAN CORPUSCULAR HEMOGLOBIN 32.9 PG (27.0-34.0); MEAN CORPUSCULAR HGB CONC 33.8 % (32.0-36.0); MONO % 12.2 % (0.0-8.0); NEUT % 65.9 % (16.0-70.0); PLATELET COUNT 167 TH/MM3 (150-450); RED CELL DISTRIBUTION WIDTH 13.6 % (11.6-17.2); WHITE BLOOD COUNT 8.9 TH/MM3 (4.0-11.0)
--- NOTE | 2017-03-05 07:39 | EKG ---
Date Performed: 03/02/2017 Time Performed: 13:45:56 PTAGE: 66 years EKG: Sinus rhythm BORDERLINE LEFT AXIS DEVIATION INCOMPLETE RIGHT BUNDLE BRANCH BLOCK Nonspecific T wave changes ABNOR MAL ECG NO PREVIOUS TRACING DOCTOR: Jesus Hawk Interpretating Date/Time 03/05/2017 07:38:46
[2017-03-05 07:40] LABS: ANION GAP 7 MEQ/L (5-15); AST (GOT) 24 U/L (15-37); BICARBONATE 25.9 MEQ/L (21.0-32.0); BLOOD UREA NITROGEN 10 MG/DL (7-18); CHLORIDE 106 MEQ/L (98-107); GLOMERULAR FILTRATION RATE 72 ML/MIN (>89); POTASSIUM 3.8 MEQ/L (3.5-5.1); SODIUM (NA) 139 MEQ/L (136-145)
[2017-03-05 07:42] LABS: ALT (GPT) 22 U/L (10-53)
[2017-03-05 07:43] LABS: ALKALINE PHOSPHATASE 82 U/L (45-117); TOTAL BILIRUBIN ADULT 1.4 MG/DL (0.2-1.0)
[2017-03-05] MEDS: MULTIVITAMINS/MINERALS THERAPEUTIC TAB PO SCH (07:43)
[2017-03-05] MEDS: DOCUSATE SODIUM 50 MG/SENNA 8.6 MG TAB PO SCH (07:43)
[2017-03-05 08:00] VITALS: BP 147/87; PULSE 90; RESP 18; TEMP 98.2; O2SAT 96
[2017-03-05] MEDS: ACETAMINOPHEN/HYDROcodone 325 MG/7.5 MG TAB PO PRN ×2 (09:00→14:19)
[2017-03-05] MEDS: ENOXAPARIN SODIUM 40 MG/0.4 ML SYRINGE SQ SCH (11:37)
[2017-03-05 12:00] VITALS: BP 133/85; PULSE 85; RESP 17; TEMP 98.7; O2SAT 95
--- NOTE | 2017-03-05 12:12 | HHI.DS ---
Discharge Summary Admission Date Mar 02, 2017 at 15:51 Discharge Date: Mar 05, 2017 Admitting Diagnosis fracture right tibial plateau. Fracture left foot fifth metatarsal. (1) Fracture of right tibial plateau ICD Code: S82.141A - Displaced bicondylar fracture of right tibia, initial encounter for closed fracture Diagnosis: Principal Status: Acute (2) Fracture of fifth metatarsal bone of left foot ICD Code: S92.352A - Displaced fracture of fifth metatarsal bone, left foot, initial encounter for closed fracture Diagnosis: Principal Status: Acute Procedures Surgical repair of right tibial plateau fracture Brief History - From Admission Written by Amor Pacheco, acting as scribe for Dr. Bledsoe on 03/02/17 at 16:15. 66-year-old female with past medical history of glaucoma who presented after a fall. The patient was pain on the and standing on a two-step call stepstool. She lost her balance and fell onto the left side of her body. She states she hit her head, left shoulder, but those are okay. She did fracture her left foot and right knee. She denies any other injury. She has no other complaints at this time. Orthopedics were consulted from the ED and plan on operative intervention in the morning. CBC/BMP: 03/05/17 0617 03/05/17 0617 Significant Findings Laboratory Tests Test 03/02/17 13:35 03/03/17 08:42 03/04/17 08:00 03/04/17 08:10 Neutrophils (%) (Auto) 75.4 % (16.0-70.0) Neutrophils # (Auto) 8.3 TH/MM3 (1.8-7.7) Activated Partial Thromboplast Time 21.9 SEC (24.3-30.1) Chloride Level 109 MEQ/L (98-107) 108 MEQ/L (98-107) Estimat Glomerular Filtration Rate 58 ML/MIN (>89) 59 ML/MIN (>89) 66 ML/MIN (>89) Monocytes (%) (Auto) 10.8 % (0.0-8.0) 13.8 % (0.0-8.0) Total Protein 6.1 GM/DL (6.4-8.2) 5.7 GM/DL (6.4-8.2) Albumin 3.1 GM/DL (3.4-5.0) 2.7 GM/DL (3.4-5.0) Calcium Level 8.4 MG/DL (8.5-10.1) 8.3 MG/DL (8.5-10.1) Total Bilirubin 2.3 MG/DL (0.2-1.0) 1.9 MG/DL (0.2-1.0) Random Glucose 110 MG/DL (74-106) Red Blood Count 3.70 MIL/MM3 (4.00-5.30) Monocytes # (Auto) 1.3 TH/MM3 (0-0.9) Test 03/05/17 06:17 Red Blood Count 3.50 MIL/MM3 (4.00-5.30) Hemoglobin 11.5 GM/DL (11.6-15.3) Hematocrit 34.0 % (35.0-46.0) Monocytes (%) (Auto) 12.2 % (0.0-8.0) Monocytes # (Auto) 1.1 TH/MM3 (0-0.9) Total Protein 5.8 GM/DL (6.4-8.2) Albumin 2.5 GM/DL (3.4-5.0) Calcium Level 8.2 MG/DL (8.5-10.1) Total Bilirubin 1.4 MG/DL (0.2-1.0) Estimat Glomerular Filtration Rate 72 ML/MIN (>89) Hospital Course Mrs. Weir is a 66-year-old female. 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 The right tibia plateau fracture was surgically repaired. Patient has been doing well postop. PT ongoing. Plan for discharge to detention facility. Orthostatic cleared this patient for discharge. Patient medically stable for discharge to detention facility today. Pt Condition on Discharge: Stable Discharge Disposition: Discharge to SNF Discharge Time: > 30 minutes Discharge Instructions DIET: Follow Instructions for: As Tolerated, No Restrictions Activities you can perform: Regular-No Restrictions Follow up Referrals: Orthopedics - 2 Weeks PCP Follow-up - 2 Weeks New Medications: Aspirin (Aspirin Low Dose) 81 Mg Chew 81 MG CHEW DAILY for zco for 30 Days, #30 TAB 0 Refills Enoxaparin Inj (Lovenox Inj) 40 Mg/0.4 Ml Syr 40 MG SQ DAILY for Blood Clot Prevention, #7 SYRINGE 0 Refills Hydrocodone-Acetaminophen (Cameron) 7.5-325 mg Tab 1-2 TAB PO Q6H PRN for PAIN, #90 TAB 0 Refills Sinan Bledsoe MD Mar 05, 2017 11:52
--- NOTE | 2017-03-05 13:15 | PD.ORT.PN ---
Subjective Post Op Day #: 2 Subjective Remarks pain under control. feeling better. Objective Vitals Vital Signs Date Time Temp Pulse Resp B/P (MAP) Pulse Ox O2 Delivery O2 Flow Rate FiO2 03/05/17 12:00 98.7 85 17 133/85 (101) 95 03/05/17 08:00 98.2 90 18 147/87 (107) 96 03/05/17 00:50 100.5 98 17 141/78 (99) 92 03/04/17 20:00 100.3 95 17 143/83 (103) 93 03/04/17 16:00 99.4 87 16 138/79 (98) 97 03/04/17 16:00 99.4 87 16 138/79 (98) 97 I/O 03/04/17 03/04/17 03/04/17 03/05/17 03/05/17 03/05/17 07:00 15:00 23:00 07:00 15:00 23:00 Intake Total 340 ml 650 ml 1280 ml 240 ml Output Total 800 ml 2850 ml Balance -460 ml 650 ml -1570 ml 240 ml Intake Oral 240 ml 650 ml 480 ml 240 ml IV Total 100 ml 800 ml Output Urine Total 800 ml 2850 ml # Voids 2 3 # Bowel Movements 0 0 0 Result Diagram: 03/05/1761603/05/17616 Objective Remarks in chair, nad incision no erythema, no drainage neg homans nvi Assessment & Plan Ortho Post Op Day #: 2 Problem List: Assessment and Plan s/p ORIF R tib plateau fx POD#2 NWB No ROM of knee daily dressing changes lovenox d/c planning to snf ortho stable and cleared for d/c f/up dr. carrera 2 weeks Luis Morales Mar 05, 2017 13:15
--- NOTE | 2017-03-06 13:05 | MP ---
cc: RON MONTILLA M.D. DATE OF SURGERY 03/03/2017 PREOPERATIVE DIAGNOSIS Right tibial plateau fracture. POSTOPERATIVE DIAGNOSIS Right tibial plateau fracture. PROCEDURE Open reduction, internal fixation right tibial plateau fracture. SURGEON Dr. Ron Montilla MEDIA MARKETING DIRECTOR Ahmet Morales PA-C ANESTHESIA General. ESTIMATED BLOOD LOSS 200 cc. TOURNIQUET TIME 0 minutes. COMPLICATIONS None. IMPLANTS USED Synthes. JUSTIFICATION This patient is a 56-year-old female who fell off of a ladder sustaining a highly displaced comminuted right intraarticular tibial plateau fracture. She was taken to [facility] Emergency Room. X-rays confirmed the above-named findings. Orthopedic Surgery was consulted. The patient was counseled as to the risks, benefits and alternatives to the above-named proposed surgical procedure. She did wish to proceed with surgery. PROCEDURE IN DETAIL Written consent was obtained. The patient was identified by name, taken to the operating room, placed supine after general anesthesia was administered as well as 2 grams of IV Ancef and 1 gram of IV vancomycin. The right lower extremity was prepped and draped using isopropyl alcohol, Hibiclens solution and Chloraprep solution. After time-out was performed a longitudinal incision was made over the lateral aspect of the right knee carrying the incision distally in a slightly anterior position. The fascial layer was incised and then the soft tissue elevated off the proximal tibia laterally. There was evidence of a very large, depressed intraarticular fragment with significant comminutio. A bone tamp was used to tamp and elevate the lateral tibial plateau fracture into a non-depressed reduced position. There was significant osteoporosis of bone and a large bone void after reduction of this bone fragment. Cancellus allograft bone chips were then placed within the bone void to allow for stabilization and buttressing effect of the fracture. Subsequently a Synthes 3.5-mm tibial plateau plate was applied to the lateral aspect of the tibial plateau. A combination of both locking and nonlocking screws were used for fixation. Fluoroscopic imaging confirmed hardware placement and fracture. The surgical wound was thoroughly irrigated with sterile saline solution. The deep fascial layer was closed with #1 Vicryl suture, the subcutaneous layer with 2-0 Vicryl suture. The skin was closed with yohana. Sterile dressing applied. The patient tolerated the procedure well with no intraoperative complication noted. Ahmet Morales, physician syrup mixer assistant certified, was present during the entire procedure to include assistance with patient positioning and the procedure itself. The medical necessity of a physician syrup mixer assistant was indicated in this case due to the complexity of the procedure. He assisted with appropriate manipulation of the leg and also retraction of muscle, tendon, bone and neurovascular structures. He assisted with both achieving and maintaining fracture reduction along with implantation of the internal fixation device. MD CARLEY Montes/JAIR /12:49 PM /12:53 PM
== END 2017-03-05 15:49 | DRG 494 ==
LOC: NEPD 10:09 → NEDA 15:51 → N06A 18:30
PROVIDERS: ADMIT Hospitalist; ATTEND Hospitalist
PROC: 0QSG04Z Reposition Right Tibia with Internal Fixation Device, Open Approach (ICD-10-PCS; principal; 2017-03-02)
DX: S82.141A Displaced bicondylar fracture of right tibia, initial encounter for closed fracture (principal); E80.6 Other disorders of bilirubin metabolism; S92.352A Displaced fracture of fifth metatarsal bone, left foot, initial encounter for closed fracture; W11.XXXA Fall on and from ladder, initial encounter; Y92.9 Unspecified place or not applicable; H40.9 Unspecified glaucoma
CPT/HCPCS: 51702; 71010; 73560; 73564; 73610; 73630; 73700; 76000; 80048; 80053; 85025; 85610; 85730; 93005; 94150; C1713; J0690; J1580; J1650; J2250; J2370; J2405; J3010; J3370; J7030; L1830; L2114